=== PATIENT | female | born 1995 | race Caucasian/White ===

== ENCOUNTER 2016-08-12 19:13 | Emergency (ER) | payer OTHER ==
--- NOTE | 2016-08-12 23:05 | ED CLINICAL REPORT ---
Clinical Report - Physicians/Mid Levels [facility] [address] [place] [address] 08/12/2016 19:16 Patient: JON CANTRELL Time Seen: 19:40; initial patient contact, initial documentation, patient care assumed. Arrived- By private vehicle. Historian- patient. HISTORY OF PRESENT ILLNESS Chief Complaint: ABDOMINAL PAIN. At its maximum, severity described as severe. When seen in the E.D., severity described as severe. Modifying factors. Not worsened by anything. Not relieved by anything. It is described as "pain". No radiation. It is described as located in the periumbilical area. This started about 1 months ago and is still present (worse today and it made her cry). It was abrupt in onset and has been intermittent. No nausea, loss of appetite, vomiting or diarrhea. No additional abdominal pain. No recent travel. Similar symptoms previously: None. Recent medical care: The patient was seen recently in a clinic. ( went to pcp today for the pain, has been to the clinic several times for it, states they have tested her for multiple things and everything is always normal, today, she went to clinic for US but they were already closed and US couldn't be done, so they told her to come here). REVIEW OF SYSTEMS No constipation, black stools, hematemesis, difficulty with urination or pain with urination. No urinary frequency, bloody stools, fever, chest pain or difficulty breathing. Denies current . All systems otherwise negative, except as recorded above. PAST HISTORY See nurses notes. PROBLEMS: Polycystic Kidney. --19:39 Brianna Shoemaker. ADDITIONAL SURGERIES: Eye surgery . Septum surgery . --19:39 Brianna Shoemaker. SOCIAL HISTORY Never smoker. No alcohol use or drug use. No recent travel. Is a local resident. FAMILY HISTORY Negative. ADDITIONAL NOTES The nursing notes have been reviewed with agreement regarding the chief complaint, HPI, ROS, PMH and patient medications and allergies. PHYSICAL EXAM Vital Signs: 08/12/2016 19:33 BP: 116/67. HR: 90. RR: 20. O2 saturation: 96%. Temp: 98.3 F. Pain level now: 11/14. Have been reviewed as normal and appear to be correct. Appearance: Alert. Oriented X3. No acute distress. Eyes: Pupils equal, round and reactive to light. Eyes normal inspection. Neck: Normal inspection. Neck supple. CVS: Normal heart rate and rhythm. Heart sounds normal. Pulses normal. Respiratory: No respiratory distress. Breath sounds normal. Chest nontender. Abdomen: Soft. Mild tenderness diffusely and in the epigastric area, left upper quadrant, periumbilical area, left side of the abdomen, right lower quadrant, suprapubic area and left lower quadrant. No guarding, rebound tenderness or Redd's, obturator or psoas sign present. Bowel sounds normal. No organomegaly. No mass. Tenderness present. Back: Normal inspection. Skin: Skin warm and dry. Normal skin color. No rash. Normal skin turgor. Extremities: Extremities exhibit normal ROM. No lower extremity edema. Neuro: Oriented X 3. No motor deficit. No sensory deficit. LABS, X-RAYS, AND EKG Abdominal Sonogram: No acute disease. (verbal report given by [employer]). Interpretation time: 23:04. Pelvic Sonogram: No acute disease. verbal report given by [employer]. Interpretation time: 23:05. Laboratory Tests: UA-Culture if indicated: (FLORINA: 08/12/2016 20:20) ( MsgRcvd 08/12/2016 20:40) Final results Test Result Flag Units (Reference) URINE COLOR YELLOW URINE APPEARANCE CLEAR URINE GLUCOSE NEGATIVE (NEGATIVE) URINE BILIRUBIN NEGATIVE (NEGATIVE) URINE KETONE NEGATIVE (NEGATIVE) URINE SPECIFIC GRAVITY 1.025 (1.010-1.030) URINE PH 6.0 (5.0-8.0) URINE PROTEIN NEGATIVE (NEGATIVE) URINE UROBILINOGEN 0.2 EU/dL (0.2-1.0) URINE NITRITE NEGATIVE (NEGATIVE) URINE BLOOD NEGATIVE (NEGATIVE) URINE LEUK ESTERASE POSITIVE (NEGATIVE) URINE RBC NONE SEEN rbc/hpf (0-1) URINE WBC 10-15 wbc/hpf (0-1) URINE EPITHELIAL CELLS 3-5 EPI/hpf (0-5) URINE BACTERIA FEW (1+) (NONE SEEN) URINE COMMENT CULTURE INDICATED 1+ MUCOUSURINE CULTURES ARE SET-UP BASED ON THE FOLLOWING CRITERIA:POSITIVE NITRITEPOSITIVE LEUKOCYTE ESTERASEGREATER THAN 10 WHITE BLOOD CELLSMODERATE (2+) OR GREATER BACTERIA Urine: (FOLRINA: 08/12/2016 20:20) ( MsgRcvd 08/12/2016 20:31) Final results Test Result Flag Units (Reference) URINE NEGATIVE CBC w Diff: (FLORINA: 08/12/2016 20:50) ( MsgRcvd 08/12/2016 21:00) Final results Test Result Flag Units (Reference) WHITE BLOOD COUNT 6.5 K/uL (4.5-11.5) RED BLOOD COUNT 3.80 L M/uL (4.00-5.20) HEMOGLOBIN 11.7 L gm/dL (12.0-16.0) HEMATOCRIT 35.0 L % (36.0-46.0) MEAN CELL VOLUME 92 fL (80-100) MEAN CORPUSCULAR HGB 31 pg (26-34) MEAN CORPUSCULAR HGB CONC 33 g/dL (31-37) RED CELL DISTRIBUTION WIDTH 13.6 % (11.6-14.8) PLATELET COUNT 224 K/uL (150-400) NEUTROPHIL % 60.7 % (50-75) LYMPH % 33.1 % (25-40) MONO % 5.3 % (3-14) EOSINOPHIL % 0.6 % (0-4) BASOPHIL % 0.3 % (0-2) CMP: (FLORINA: 08/12/2016 20:50) ( MsgRcvd 08/12/2016 21:12) Final results Test Result Flag Units (Reference) GLUCOSE 109 mg/dL (70-110) BUN 18 mg/dL (7-18) CREATININE 1.0 mg/dL (0.6-1.3) Estimated GFR >60 mL/min Estimated GFR- >60 mL/min Note: Persistent reduction over 3 months in eGFR<60 mL/min/1.73 m2 defines CKD. Patients with eGFR values>=60 mL/min/1.73 m2 may also have CKD if evidence ofpersistent proteinuria. Additional information may be foundat www.kidney.org. SODIUM 145 mmol/L (136-145) POTASSIUM 4.1 mmol/L (3.5-5.1) CHLORIDE 108 H mmol/L (98-107) CARBON DIOXIDE 28 mmol/L (21-32) CALCIUM 9.5 mg/dL (8.5-10.1) TOTAL PROTEIN 7.6 g/dL (6.4-8.2) ALBUMIN 4.2 g/dL (3.3-5.0) BILIRUBIN, TOTAL 0.3 mg/dL (0.0-1.0) ALKALINE PHOSPHATASE 72 U/L (46-116) AST (SGOT) 20 U/L (15-37) ALT (SGPT) 29 U/L (12-78) LIPASE 161 U/L (73-393) AMYLASE 48 U/L (25-115) . PROGRESS AND PROCEDURES Course of Care: 21:46 08/12/16. pt updated with lab results and eta of 22:25 08/12/16. [employer] here, asked me to change my order 23:06 08/12/16. pt telling me she has abx rx at home that gave her a few days ago, but she hasn't gotten it yet, because at that time she had no uti, pt instructed she could take either rx, but wouldn't need both. Patient counseled in person regarding the patient's stable condition and diagnosis. 23:05. Differential Diagnosis: I considered gastritis, peptic ulcer disease, gastroesophageal reflux disease, acute appendicitis, diverticulitis, colon cancer, adhesions, biliary colic, cholecystitis, cholelithiasis, hepatitis, pancreatitis, common bile duct obstruction, cholangitis, hernia, urinary tract infection, ureterolithiasis, ovarian cyst, ovarian torsion, ectopic , pelvic inflammatory disease, pelvic abscess, endometriosis, cancer and viral syndrome as a possible cause of abdominal pain in this patient. This is a partial list of diagnoses considered. Above considerations are based on history, physical exam, reassessment, laboratory data and other information. Differential diagnosis was discussed with patient. Disposition: Discharged home in good and unchanged condition (23:05). Condition: good and stable. CLINICAL IMPRESSION Acute abdominal pain of undetermined cause. Acute urinary tract infection with cystitis. No pyelonephritis or hematuria. Not associated with indwelling catheter or obstruction. INSTRUCTIONS Warnings: GENERAL WARNINGS: Return or contact your physician immediately if your condition worsens or changes unexpectedly, if not improving as expected, or if other problems arise. SPECIFICALLY, return if you develop pain in the abdomen or pelvis, fever, the inability to keep fluids down, blood in vomitus, blood in diarrhea, fainting or lightheadedness. Prescription Medications: Trimethoprim-Sulfamethoxazole DS: take 1 tablet orally every 12 hours for 7 days. Dispense fourteen (14). No refills. Pyridium 200 mg: take 1 orally every 8 hours as needed for urinary problems. Dispense six (6). No refills. Substitution is permissible. Follow-up: Follow up with your doctor in about three days even if well. Call for an appointment. Summary of care provided to patient. Understanding of the discharge instructions verbalized by patient. (Electronically signed by Nataliia Lui A.R.N.P. 08/16/2016 13:39)
--- NOTE | 2016-08-12 23:05 | ED ORDER SUMMARY ---
..... Patient: JON CANTRELL OrderSheet [facility] VisitID: [id number] [place] [address] 21y, F Registration Date/Time: 08/12/2016 ORDER SHEET Weight: 66.6 kg (stated) Allergies: No Known Drug Allergy GENERAL ORDERS: US Pelvic Complete Urgent (20:08/12/2016 HBivens A.R.N.P.) (Ack 20:33 SRedmond) (22:25 HBivens A.R.N.P.) (Cancelled: Other22:25 HBivens A.R.N.P.) US Abdomen Complete (No) Urgent (20:08/12/2016 HBivens A.R.N.P.) (Ack 20:33 SRedmond) (22:25 HBivens A.R.N.P.) (Cancelled: Other22:25 HBivens A.R.N.P.) CBC w Diff Urgent (20:08/12/2016 HBivens A.R.N.P.) (Ack 20:33 SRedmond) (21:27 HSoule) CMP Urgent (20:08/12/2016 HBivens A.R.N.P.) (Ack 20:33 SRedmond) (21:27 HSoule) UA-Culture if indicated Urgent (20:08/12/2016 HBivens A.R.N.P.) (Ack 20:33 SRedmond) (21:27 HSoule) Amylase Urgent (20:08/12/2016 HBivens A.R.N.P.) (Ack 20:33 SRedmond) (21:27 HSoule) Lipase Urgent (20:08/12/2016 HBivens A.R.N.P.) (Ack 20:33 SRedmond) (21:27 HSoule) Urine Urgent (20:08/12/2016 HBivens A.R.N.P.) (Ack 20:33 SRedmond) (21:27 HSoule) US Abdomen Limited (No) Urgent (22:24 08/12/2016 HBivens A.R.N.P.) (Ack 22:25 SRedmond) (23:06 SRedmond) US Pelvic Complete w Transvag Urgent (22:25 08/12/2016 HBivens A.R.N.P.) (Ack 22:25 SRedmond) (23:06 SRedmond) MEDICATION ORDERS: IV FLUIDS: IV Saline Lock (20:22 08/12/2016 HBivens A.R.N.P.) (Ack 20:22 Keshav) (20:49 HSoule) ORDER SHEET NOTES: [Electronically signed by Lore Shanks R.N. (23:15 08/12/2016)] [Electronically signed by Nataliia Lui.R.N.P. (13:39 08/16/2016)] [Electronically locked/signed by Lore Shanks R.N. (23:15 08/12/2016)]
--- NOTE | 2016-08-12 23:05 | ED NURSING NOTES ---
Clinical Report - Nurses Located Within [facility] [place] [address] 08/12/2016 19:16 [id number] Triage time 19:33 Aug 12 2016. Acuity: LEVEL 3. Chief Complaint: ABDOMINAL PAIN. SEPSIS SCREEN: Sepsis Screen: negative. Negative (no infection suspected/documented). JOO COMA SCORE: Joo Coma Scale: 15- eyes open spontaneously (4); best verbal response- oriented x 4 (5); best motor response- obeys commands (6). --19:39 Brianna Shoemaker 19:33 08/12/16. BP: 116/67. HR: 90. RR: 20. O2 saturation: 96% on room air. Temp: 98.3 F (oral). Pain level now: 11/14. --19:39 Brianna Shoemaker. Weight: 66.6 kg stated. Height/Length: 66 inches Per Patient. BMI: 23.7. --19:38 Brianna Shoemaker. Medications None. --19:38 Brianna Shoemaker. Allergies No Known Drug Allergy. --19:38 Brianna Shoemaker. Medication/allergy information source: the patient. --19:39 Brianna Shoemaker. History Arrived by private vehicle. Historian: patient. Unaccompanied. Primary physician ([facility]). Onset. (1 months, worse today). ( Patient reports abdominal pain for one month. Patient reports worsening in pain today. She states that she has a history of polycystic kidney disease and has been recently seen by her PCP and urologist who cannot find reason for her pain. She went to her PCP today who stated she may need an ultrasound. She reports pain around her umbilical region and also reports that she has pain in her lower right and left abdomen.). Treatment XRAY TECH: None. SOCIAL HX: Never smoker. No alcohol use or drug use. No recent travel. No infectious disease exposure. No known contact with a sick individual. ABUSE ASSESSMENT: No report of abuse. SELF HARM ASSESSMENT: A self harm assessment was performed. The patient answered "no" to the question "Have you recently felt down, depressed, or hopeless?", "Have you noticed less interest or pleasure in doing things?", "Do you have thoughts of harming or killing yourself?", "Are you here because you tried to hurt yourself?", "Have you ever tried to hurt yourself before today?", "Have you recently had thoughts about harming or killing others?" and "Do you have any dangerous items in your possession?". FALL RISK ASSESSMENT: Fall risk assessment completed. No fall risk identified. NUTRITIONAL RISK ASSESSMENT: The nutritional risk assessment revealed no deficiencies. FUNCTIONAL ASSESSMENT: Functional assessment: no impairments noted. LEARNING NEEDS ASSESSMENT: The learning needs assessment revealed no barriers. SKIN INTEGRITY ASSESSMENT: Skin integrity risk assessment completed. No skin integrity risk identified. --19:39 Brianna Shoemaker. PROBLEMS: Polycystic Kidney. --19:39 Brianna Shoemaker. ADDITIONAL SURGERIES: Eye surgery . Septum surgery . --19:39 Brianna Shoemaker. Interventions ID band on patient. To treatment room. --19:39 Brianna Shoemaker. PHYSICAL ASSESSMENT GENERAL / NEURO / PSYCH: Alert. Oriented X 4. Appears in no acute distress. HEENT: Mucous membranes are pink. RESPIRATORY: Respirations not labored. CVS: Normal sinus rhythm noted. GI / : Abdomen soft. Abdominal tenderness in the periumbilical area, right lower quadrant and left lower quadrant. SKIN: Skin is warm and dry. --19:40 Brianna Shoemaker. NURSING PROGRESS NOTES Pulse oximeter and NIBP monitor placed on patient; monitor alarms on. Patient gowned. Warming measures performed. Reassurance given to the patient. Two patient identifiers checked. Call light placed in reach. Side rails up x 1. Bed placed in lowest position. Brakes of bed on. Patient ready for evaluation- chart flagged and ED physician notified. --19:40 Brianna Shoemaker Patient ID band checked for patient name and birthdate: patient confirmed. Instructions provided to collect clean catch urine and patient verbalized understanding. Clean catch urine collected with return of yellow-colored clear urine. --20:21 Mala Springer 20:49 08/12/2016 Site #1 started via IV in the right antecubital space with an 20g angiocath, with aseptic technique and good blood return; one attempt. Blood drawn: rainbow set. Labeled in the presence of the patient and sent to the lab. Saline lock flushed with 10 mL saline. --20:49 Brianna Shoemaker 20:49 08/12/16. BP: 116/65. HR: 98. RR: 20. O2 saturation: 98% on room air. Pain level now: 09/14. --20:49 Brianna Shoemaker The patient reports no complaints and she is resting quietly. ( Ultrasound here to perform exam). --22:29 Brianna Shoemaker 22:26 08/12/16. BP: 106/54. HR: 85. RR: 20. O2 saturation: 99% on room air. Pain level now: 08/15. --22:29 Brianna Shoemaker. DISPOSITION / DISCHARGE 23:13 08/12/2016 Site #1 removed upon discharge. Catheter intact. Bandaid applied. --23:13 Shea Cherry Departure time: 23:14. Condition at departure: improved. No learning barriers present. Discharge instructions provided and reviewed with the patient. Reviewed medication(s) side effects, precautions, dosing and course information. Prescription(s) given to the patient. Follow up contact number with PCP. Patient verbalized understanding. Written instructions provided in Chinese. No warning instructions, treatment instructions, referrals given to the patient, diet instructions or activity restrictions. No stop smoking instructions. No work note given or school note given. The patient was discharged by the physician. She was discharged home and accompanied by spouse. She left the Emergency Department ambulatory and via private vehicle. Family member driving. FALL RISK ASSESSMENT: Fall risk assessment completed. No fall risk identified. --23:14 Shea Cherry 23:13 08/12/16. BP: 110/72. HR: 68. RR: 18. O2 saturation: 97%. Temp: deferred. Pain level now: 0/10. --23:14 Shea Cherry Locked/Released at 08/12/2016 23:15 by Shea Cherry
--- NOTE | 2016-08-12 23:05 | ED ORDER SUMMARY ---
..... Patient: JON CANTRELL OrderSheet [facility] VisitID: [id number] [place] [address] 21y, F Registration Date/Time: 08/12/2016 ORDER SHEET Weight: 66.6 kg (stated) Allergies: No Known Drug Allergy GENERAL ORDERS: US Pelvic Complete Urgent (20:08/12/2016 HBivens A.R.N.P.) (Ack 20:33 SRedmond) (22:25 HBivens A.R.N.P.) (Cancelled: Other22:25 HBivens A.R.N.P.) US Abdomen Complete (No) Urgent (20:08/12/2016 HBivens A.R.N.P.) (Ack 20:33 SRedmond) (22:25 HBivens A.R.N.P.) (Cancelled: Other22:25 HBivens A.R.N.P.) CBC w Diff Urgent (20:08/12/2016 HBivens A.R.N.P.) (Ack 20:33 SRedmond) (21:27 HSoule) CMP Urgent (20:08/12/2016 HBivens A.R.N.P.) (Ack 20:33 SRedmond) (21:27 HSoule) UA-Culture if indicated Urgent (20:08/12/2016 HBivens A.R.N.P.) (Ack 20:33 SRedmond) (21:27 HSoule) Amylase Urgent (20:08/12/2016 HBivens A.R.N.P.) (Ack 20:33 SRedmond) (21:27 HSoule) Lipase Urgent (20:08/12/2016 HBivens A.R.N.P.) (Ack 20:33 SRedmond) (21:27 HSoule) Urine Urgent (20:08/12/2016 HBivens A.R.N.P.) (Ack 20:33 SRedmond) (21:27 HSoule) US Abdomen Limited (No) Urgent (22:24 08/12/2016 HBivens A.R.N.P.) (Ack 22:25 SRedmond) (23:06 SRedmond) US Pelvic Complete w Transvag Urgent (22:25 08/12/2016 HBivens A.R.N.P.) (Ack 22:25 SRedmond) (23:06 SRedmond) MEDICATION ORDERS: IV FLUIDS: IV Saline Lock (20:22 08/12/2016 HBivens A.R.N.P.) (Ack 20:22 Keshav) (20:49 HSoule) ORDER SHEET NOTES: [Electronically signed by Lore Shanks R.N. (23:15 08/12/2016)] [Electronically signed by Nataliia Liu.R.N.P. (13:39 08/16/2016)] [Electronically locked/signed by Lore Shanks R.N. (23:15 08/12/2016)]
--- NOTE | 2016-08-12 23:45 | DIAGNOSTIC IMAGING REPORT ---
PROCEDURE: US ABDOMEN ULTRASOUND-LIMITED INDICATION: Abdominal pain. TECHNIQUE: Headley scale and color Doppler sonographic images of the abdomen were obtained. COMPARISON: None. FINDINGS: Gallbladder is partially contracted (nonfasting state). No evidence of gallstones. Common duct is normal (4 mm). Portions of the liver and pancreas are seen, and are normal. Right kidney is of normal size (11.7 cm) with two to three simple cysts (largest 1.3 cm). IMPRESSION: 1. Partially contracted gallbladder (nonfasting state). 2. Otherwise negative ultrasound of the gallbladder and right upper quadrant.
--- NOTE | 2016-08-12 23:47 | DIAGNOSTIC IMAGING REPORT ---
PROCEDURE: US COMPLETE PELVIC W/TRANSVAG INDICATION: Pelvic pain. TECHNIQUE: Transabdominal and endovaginal ramos scale and color Doppler sonographic images of the female pelvis were obtained. COMPARISON: None. FINDINGS: TRANSABDOMINAL SCANS: Uterus is of normal size (6.1 x 3.0 x 3.6 cm). TRANSVAGINAL SCANS: Endometrial thickness is normal (3 mm). Ovaries are normal (right 2.8 cm, left 2.3 cm) with normal vascularity. No evidence of free fluid. Ectopic is not completely excluded on the basis of the study. IMPRESSION: 1. Normal pelvic ultrasound.
--- NOTE | 2016-08-16 13:39 | ED MED RECONCILIATION SUMMARY ---
Patient: JON CANTRELL Medication Reconciliation Report [facility] VisitID: [id number] [place] [address] 21y, F Registration Date/Time: 08/12/2016 Weight: 66.6 kg Height/Length: 66 in. BMI: 23.7 ALLERGIES: No Known Drug Allergy The patient's Home Medications are listed below: NONE. The source(s) of the original Home Medication information: patient The following Medications were given to the patient in the Emergency Department: None. The following Medications were prescribed to the patient: Trimethoprim-Sulfamethoxazole DS: take 1 tablet orally every 12 hours for 7 days. Dispense fourteen (14). No refills. -- Nataliia Lui, A.R.N.P. Pyridium 200 mg: take 1 orally every 8 hours as needed for urinary problems. Dispense six (6). No refills. Substitution is permissible. -- Nataliia Lui, A.R.N.P.
--- NOTE | 2016-08-16 13:39 | ED MAR SUMMARY ---
..... Medication Administration Record [facility] [address] [place], [place] [id number] Patient: JON CANTRELL Visit ID: [id number] 21y, F Weight: 66.6 kg Height/Length: 66 in BMI: 23.7 ALLERGIES: No Known Drug Allergy
--- NOTE | 2016-08-16 13:39 | ED DISCHARGE INSTRUCTIONS ---
Patient: JON CANTRELL General Instructions [facility] VisitID: [id number] [place] [address] 21y, F Registration Date/Time: 08/12/2016 Acute abdominal pain of undetermined cause. Acute urinary tract infection with cystitis. No pyelonephritis or hematuria. Not associated with indwelling catheter or obstruction. INSTRUCTIONS Warnings: GENERAL WARNINGS: Return or contact your physician immediately if your condition worsens or changes unexpectedly, if not improving as expected, or if other problems arise. SPECIFICALLY, return if you develop pain in the abdomen or pelvis, fever, the inability to keep fluids down, blood in vomitus, blood in diarrhea, fainting or lightheadedness. Prescription Medications: Trimethoprim-Sulfamethoxazole DS: take 1 tablet orally every 12 hours for 7 days. Dispense fourteen (14). No refills. Pyridium 200 mg: take 1 orally every 8 hours as needed for urinary problems. Dispense six (6). No refills. Substitution is permissible. Follow-up: Follow up with your doctor in about three days even if well. Call for an appointment. Summary of care provided to patient. Understanding of the discharge instructions verbalized by patient. ADDITIONAL INFORMATION Abdominal Pain, Unknown Cause (Female) The exact cause of your abdominal (stomach) pain is not certain. This does not mean that this is something to worry about, or the right tests were not done. Everyone likes to know the exact cause of the problem, but sometimes with abdominal pain, there is no clear-cut cause, and this could be a good thing. The good news is that your symptoms can be treated, and you will feel better. Your condition does not seem serious now; however, sometimes the signs of a serious problem may take more time to appear. For this reason,it is important for you to watch for any new symptoms, problems,or worsening of your condition. Over the next few days, the abdominal pain may come and go, or be continuous. Other common symptoms can include nausea and vomiting. Sometimes it can be difficult to tell if you feel nauseous, you may just feel bad and not associate that feeling with nausea. Constipation, diarrhea, and a fever may go along with the pain. The pain may continue even if treated correctly over the following days. Depending on how things go, sometimes the cause can become clear and may require further or different treatment. Additional evaluations, medications, or tests may be needed. Home care Your health care provider may prescribe medications for pain, symptoms, or an infection. Follow the health care provider's instructions for taking these medications. General care Rest until your next exam. No strenuous activities. Try to find positions that ease discomfort. A small pillow placed on the abdomen may help relieve pain. Something warm on your abdomen (such as a heating pad) may help, but be careful not to burn yourself. Diet Do not force yourself to eat, especially if having cramps, vomiting, or diarrhea. Water is important so you do not get dehydrated. Soup may also be good. Sports drinks may also help, especially if they are not too acidic. Make sure you don't drink sugary drinks as this can make things worse. Take liquids in small amounts. Do not guzzle them. Caffeine sometimes makes the pain and cramping worse. Avoid dairy products if you have vomiting or diarrhea. Don't eat large amounts at a time. Wait a few minutes between bites. Eat a diet low in fiber (called a low-residue diet). Foods allowed include refined breads, white rice, fruit and vegetable juices without pulp, tender meats. These foods will pass more easily through the intestine. Avoid whole-grain foods, whole fruits and vegetables, meats, seeds and nuts, fried or fatty foods, dairy, alcohol and spicy foods until your symptoms go away. Follow-up care Follow up with your health care provider as instructed, or if your pain does not begin to improve in the next 24 hours. When to seek medical care Seek prompt medical care if any of the following occur: Pain gets worse or moves to the right lower abdomen New or worsening vomiting or diarrhea Swelling of the abdomen Unable to pass stool for more than three days Fever of 100.4F (38C) or higher, or as directed by your healthcare provider. Blood in vomit or bowel movements (dark red or black color) Jaundice (yellow color of eyes and skin) Weakness, dizziness Chest, arm, back, neck or jaw pain Unexpected vaginal bleeding or missed period Call 911 Call emergency services if any of the following occur: Trouble breathing Confusion Fainting or loss of consciousness Rapid heart rate Seizure Abdominal Pain,Possible Appendicitis [Repeat Exam, Female] Based on your visit today, the exact cause of your abdominal (stomach) pain is not certain. However, you do have some of the early signs of APPENDICITIS. Early in an appendix infection the symptoms can be similar to a simple "stomach ache" or "stomach flu". Therefore, the diagnosis can be hard to make. Since an appendix infection is a serious condition, it is important to know if this is the cause of your symptoms. WAITING for more time to pass and repeating the exam is the best way to find out whether you have appendicitis. Within the next 12-24 hours the cause of your stomach pain should become clear. It is important for you to watch for any new symptoms or worsening of your condition. (See below). Home Care: Rest until your next exam. No strenuous activities. Eat a diet low in fiber (called a low-residue diet). Foods allowed include refined breads, white rice, fruit and vegetable juices without pulp, tender meats. These foods will pass more easily through the intestine. Avoid whole-grain foods, whole fruits and vegetables, meats, seeds and nuts, fried or fatty foods, dairy, alcohol and spicy foods until your symptoms go away. In some cases, you may be asked not to eat or drink anything until you are re-examined. Return for another exam exactly as directed. Follow Up with your doctor or this facility as directed. Get Prompt Medical Attention if any of the following occur: Pain gets worse or moves to the right lower abdomen New or worsening vomiting or diarrhea Swelling of the abdomen Unable to pass stool for more than three days Fever of 100.4F (38C) or higher, or as directed by your healthcare provider Blood in vomit or bowel movements (dark red or black color) Weakness, dizziness or fainting Unexpected vaginal bleeding Bladder Infection,Female (Adult) A bladder infection ("cystitis" or "UTI") usually causes a constant urge to urinate and a burning when passing urine. Urine may be cloudy, smelly or dark. There may be pain in the lower abdomen. A bladder infection occurs when bacteria from the vaginal area enter the bladder opening (urethra). This can occur from sexual intercourse, wearing tight clothing, dehydration and other factors. Home Care: Drink lots of fluids (at least 6-8 glasses a day, unless you must restrict fluids for other medical reasons). This will force the medicine into your urinary system and flush the bacteria out of your body. Avoid sexual intercourse until your symptoms are gone. Avoid caffeine, alcohol and spicy foods. These can irritate the bladder. A bladder infection is treated with antibiotics. You may also be given Pyridium (generic = phenazopyridine) to reduce the burning sensation. This medicine will cause your urine to become a bright orange color. The orange urine may stain clothing. You may wear a pad or panty-liner to protect clothing. Preventing Future Infections: Always wipe from front to back after a bowel movement. Keep the genital area clean and dry. Drink plenty of fluids each day to avoid dehydration. Both sexual partners should wash before intercourse. Urinate right after intercourse to flush out the bladder. Wear cotton underwear and cotton-lined panty hose; avoid tight-fitting pants. If you are on control pills and are having frequent bladder infections, discuss with your doctor. Follow Up: Return to this facility or see your doctor if ALL symptoms are not gone after three days of treatment. Get Prompt Medical Attention if any of the following occur: Fever of 100.4F (38C) or higher, or as directed by your healthcare provider No improvement by the third day of treatment Increasing back or abdominal pain Repeated vomiting; unable to keep medicine down Weakness, dizziness or fainting Vaginal discharge Pain, redness or swelling in the labia (outer vaginal area) Sulfamethoxazole, Trimethoprim Oral tablet What is this medicine? SULFAMETHOXAZOLE; TRIMETHOPRIM or SMX-TMP (suhl fuh meth OK chris zohl; trye METH oh prim) is a combination of a sulfonamide antibiotic and a second antibiotic, trimethoprim. It is used to treat or prevent certain kinds of bacterial infections. It will not work for colds, flu, or other viral infections. How should I use this medicine? Take this medicine by mouth with a full glass of water. Follow the directions on the prescription label. Take your medicine at regular intervals. Do not take it more often than directed. Do not skip doses or stop your medicine early. Talk to your supervisor slashing department regarding the use of this medicine in children. Special care may be needed. This medicine has been used in children as young as 2 months of age. What side effects may I notice from receiving this medicine? Side effects that you should report to your doctor or health cardiac care unit nurse as soon as possible: allergic reactions like skin rash or hives, swelling of the face, lips, or tongue breathing problems fever or chills, sore throat irregular heartbeat, chest pain joint or muscle pain pain or difficulty passing urine red pinpoint spots on skin redness, blistering, peeling or loosening of the skin, including inside the mouth unusual bleeding or bruising unusually weak or tired yellowing of the eyes or skin Side effects that usually do not require medical attention (report to your doctor or health cardiac care unit nurse if they continue or are bothersome): diarrhea dizziness headache loss of appetite nausea, vomiting nervousness What may interact with this medicine? Do not take this medicine with any of the following medications: aminobenzoate potassium dofetilide metronidazole This medicine may also interact with the following medications: LA inhibitors like benazepril, enalapril, lisinopril, and ramipril cyclosporine digoxin diuretics indomethacin medicines for diabetes methenamine methotrexate phenytoin potassium supplements pyrimethamine sulfinpyrazone tricyclic antidepressants warfarin What if I miss a dose? If you miss a dose, take it as soon as you can. If it is almost time for your next dose, take only that dose. Do not take double or extra doses. Where should I keep my medicine? Keep out of the reach of children. Store at room temperature between 20 to 25 degrees C (68 to 77 degrees F). Protect from light. Throw away any unused medicine after the expiration date. What should I tell my health care provider before I take this medicine? They need to know if you have any of these conditions: anemia asthma being treated with anticonvulsants if you frequently drink alcohol containing drinks kidney disease liver disease low level of folic acid or btiqlew-6-zilxvgenq dehydrogenase poor nutrition or malabsorption porphyria severe allergies thyroid disorder an unusual or allergic reaction to sulfamethoxazole, trimethoprim, sulfa drugs, other medicines, foods, dyes, or preservatives or trying to get breast-feeding What should I watch for while using this medicine? Tell your doctor or health cardiac care unit nurse if your symptoms do not improve. Drink several glasses of water a day to reduce the risk of kidney problems. Do not treat diarrhea with over the counter products. Contact your doctor if you have diarrhea that lasts more than 2 days or if it is severe and watery. This medicine can make you more sensitive to the sun. Keep out of the sun. If you cannot avoid being in the sun, wear protective clothing and use a sunscreen. Do not use sun lamps or tanning beds/booths. Phenazopyridine Hydrochloride Oral tablet What is this medicine? PHENAZOPYRIDINE (fen yuliet oh SIRENA brock) is a pain reliever. It is used to stop the pain, burning, or discomfort caused by infection or irritation of the urinary tract. This medicine is not an antibiotic. It will not cure a urinary tract infection. How should I use this medicine? Take this medicine by mouth with a glass of water. Follow the directions on the prescription label. Take after meals. Take your doses at regular intervals. Do not take your medicine more often than directed. Do not skip doses or stop your medicine early even if you feel better. Do not stop taking except on your doctor's advice. Talk to your supervisor slashing department regarding the use of this medicine in children. Special care may be needed. What side effects may I notice from receiving this medicine? Side effects that you should report to your doctor or health cardiac care unit nurse as soon as possible: allergic reactions like skin rash, itching or hives, swelling of the face, lips, or tongue blue or purple color of the skin difficulty breathing fever less urine unusual bleeding, bruising unusual tired, weak vomiting yellowing of the eyes or skin Side effects that usually do not require medical attention (report to your doctor or health cardiac care unit nurse if they continue or are bothersome): dark urine headache stomach upset What may interact with this medicine? Interactions are not expected. What if I miss a dose? If you miss a dose, take it as soon as you can. If it is almost time for your next dose, take only that dose. Do not take double or extra doses. Where should I keep my medicine? Keep out of the reach of children. Store at room temperature between 15 and 30 degrees C (59 and 86 degrees F). Protect from light and moisture. Throw away any unused medicine after the expiration date. What should I tell my health care provider before I take this medicine? They need to know if you have any of these conditions: evejveh-8-ddhymtuyq dehydrogenase (G6PD) deficiency kidney disease an unusual or allergic reaction to phenazopyridine, other medicines, foods, dyes, or preservatives or trying to get breast-feeding What should I watch for while using this medicine? Tell your doctor or health cardiac care unit nurse if your symptoms do not improve or if they get worse. This medicine colors body fluids red. This effect is harmless and will go away after you are done taking the medicine. It will change urine to an dark orange or red color. The red color may stain clothing. Soft contact lenses may become permanently stained. It is best not to wear soft contact lenses while taking this medicine. If you are diabetic you may get a false positive result for sugar in your urine. Talk to your health care provider. You have been given the following additional information: Abdominal Pain, Unknown Cause, (Female) Abdominal Pain, Possible Appendicitis (Female) Bladder Infection, Female (Adult) Sulfamethoxazole, Trimethoprim Oral tablet Phenazopyridine Hydrochloride Oral tablet (Electronically signed by Nataliia Lui A.R.N.P. 08/16/2016 13:39)
--- NOTE | 2016-08-16 13:39 | ED MAR SUMMARY ---
..... Medication Administration Record [facility] [address] [place], [place] [id number] Patient: JON CANTRELL Visit ID: [id number] 21y, F Weight: 66.6 kg Height/Length: 66 in BMI: 23.7 ALLERGIES: No Known Drug Allergy
--- NOTE | 2016-08-16 13:39 | ED MED RECONCILIATION SUMMARY ---
Patient: JON CANTRELL Medication Reconciliation Report [facility] VisitID: [id number] [place] [address] 21y, F Registration Date/Time: 08/12/2016 Weight: 66.6 kg Height/Length: 66 in. BMI: 23.7 ALLERGIES: No Known Drug Allergy The patient's Home Medications are listed below: NONE. The source(s) of the original Home Medication information: patient The following Medications were given to the patient in the Emergency Department: None. The following Medications were prescribed to the patient: Trimethoprim-Sulfamethoxazole DS: take 1 tablet orally every 12 hours for 7 days. Dispense fourteen (14). No refills. -- Nataliia Lui, A.R.N.P. Pyridium 200 mg: take 1 orally every 8 hours as needed for urinary problems. Dispense six (6). No refills. Substitution is permissible. -- Nataliia Lui, A.R.N.P.
== END 2016-08-12 23:10 | disposition home or self-care (01) ==
LOC: ED SRH 19:13
DX: N30.90 Cystitis, unspecified without hematuria (principal); R10.9 Unspecified abdominal pain
CPT/HCPCS: 90004; 90100; 90469; 92235; 92530; 93070; 95059